=== PATIENT | male | born 1980 | race Two or more races ===

== ENCOUNTER 2025-04-04 16:48 | Emergency (ER) | payer OTHER ==
[~2025-04-04] VITALS: Ht 170.2 cm; Wt 84.4 kg
[2025-04-04] MEDS ORDERED: KETOROLAC TROMETHAMINE 30 MG VIAL IM ONE (18:30)
[2025-04-04] MEDS ORDERED: NEURONTIN300 MG PO (18:39)
[2025-04-04] MEDS ORDERED: ZOVIRAX800 MG PO (18:39)
== END 2025-04-04 18:57 | disposition home or self-care (01) ==
LOC: ER 16:48
DX: B02.9 Zoster without complications (principal); R21 Rash and other nonspecific skin eruption